=== PATIENT | female | born 1965 ===

== ENCOUNTER 2016-12-07 21:10 | Emergency (ER) | payer MEDICAID ==
[~2016-12-07] VITALS: Ht 144.8 cm; Wt 72.7 kg
[~2016-12-07 21:10] MED LIST: AMOX-366 PO; LEVO750T9 PO; LORA-303 PO; RISP1TAB90 PO
[2016-12-07 21:17] VITALS: BP 150/85; PULSE 96; RESP 20; O2SAT 97
--- NOTE | 2016-12-07 21:23 | ED.REPORT ---
HPI-Psychiatric Illness Date of Service Dec 07, 2016 ED Provider: Alan Gonzalez MD A 51 year old female with a history of schizophrenia, bipolar disorder, depression, anxiety and self-mutilation many years ago presents to the ED complaining of depression. The pt has been experiencing increased stress recently from her situation at home, resulting in anxiety and depression. The pt has been having suicidal thoughts involving drowning herself, but denies suicidal intent at this time. She is [facility] and states that she has stayed at [facility] before. The pt denies shortness of breath or any other physical concerns. Nursing Notes Stated Complaint: ANXIETY, DEPRESSION Chief Complaint: Psychiatric Complaint Nursing Notes Reviewed: Yes Allergies: Coded Allergies: codeine (Verified Allergy, Intermediate, Nausea,Vomiting, 12/07/16) acetaminophen (Verified Adverse Reaction, Intermediate, Nausea,Vomiting, ) Scheduled Amoxicillin/Clav K 875-125 mg (Augmentin 875-125 mg) 1 Each Tablet 1 TABLET PO BID Levofloxacin (Levaquin) 750 Mg Tablet 750 MG PO DAILY Risperidone (Risperdal) 1 Mg Tablet 1 MG PO DAILY Scheduled PRN Lorazepam-Expunged Drug, Do Not Renew! (Lorazepam-Expunged Drug, Do Not Renew!) 1 Mg Tab 1 MG PO HS PRN PRN General Time Seen by MD: 21:23 Chief Complaint Depressed Hx Obtained From: Patient Arrived By: Walk-in Symptom Duration: Since onset Recent Healthcare: No recent hospitalization Similar Sx Previous: Yes Risk-Psychiatric Illness Suicide Risk Stratification Suicide Risk Factors - Adult: No: Alcohol use, Substance abuse RF Statements: Risk factors reviewed Past Medical History Past Medical History Anxiety Depression Schizophrenia Heart murmur Self-mutilation many years ago Heart murmur Past Surgical History None reported Family History Noncontributory Smoking History Never Smoker Social History not reported Drug Use: Denies drug use Other Social History: Good social support, Local resident Ambulatory Status Independent Review of Systems Respiratory: Denies: Non-productive cough, Shortness of breath Cardiovascular: Denies: Chest pain GI: Denies: Abdominal pain, Vomiting Skin: Denies Rash Psychiatric: Reports: Depression, Suicidal ideation (earlier, not currently) Complete sys rev & neg: except as marked. Physical Exam Initial Vital Signs Vital Signs (First) Date Time Temp Pulse Resp B/P Pulse Ox O2 Delivery O2 Flow Rate FiO2 12/07/16 21:17 36.1 96 20 150/85 97 Room Air Initial VS: Reviewed General/Constitutional: Awake, Alert Appearance / Presentation: Positive: Obese Neurologic: Oriented X3, Speech NL, No motor deficits, No sensory deficits Psychiatric: Affect NL Abnormal Mood/Affect: Positive: Depressed Tearful Head / Eyes: Atraumatic, Normocephalic, PERRL, EOMI ENT: Atraumatic, Airway patent, Mucous membranes moist Respiratory / Chest: Atraumatic, Breath sounds NL, Breath sounds = bilat, No respiratory distress Cardiovascular: Heart rate NL, Regular rhythm, Heart sounds NL Abdomen: Atraumatic, Soft, Non-tender Skin: Atraumatic, Color NL, No rash, Warm, Dry Neck: Atraumatic, Supple, Full range of motion, No adenopathy Back: Atraumatic, Full range of motion Upper Extremity / MS: Atraumatic, Full range of motion Lower Extremity / Pelvis / MS: Atraumatic, Full range of motion Interpretation & Diagnostics Lab Results Interpretation Result Diagram: 12/07/16 2206 Test 12/07/16 22:00 12/07/16 22:06 White Blood Count 7.2th/mm3 (3.8-10.1) Red Blood Count 5.02mil/mm3 (3.90-5.20) Hemoglobin 14.5g/dL (12.0-15.6) Hematocrit 42.2% (35.0-46.0) Mean Corpuscular Volume 84.1fL (81-100) Mean Corpuscular Hemoglobin 28.9pg (27.0-35.0) Mean Corpuscular Hemoglobin Concent 34.4% (32.0-37.0) Red Cell Distribution Width 13.5% (12.3-15.4) Platelet Count 278bil/L (150-400) Neutrophils (%) (Auto) 64.0% (40-74) Lymphocytes (%) (Auto) 24.1% (14-46) Monocytes (%) (Auto) 10.0% (4-12) Eosinophils (%) (Auto) 1.7% (0-5) Basophils (%) (Auto) 0.1% (0-3) Re-Eval/Medical Decision Med Decision/Clinical Course 51-year-old disabled lady with bipolar illness and a remote history of cutting behavior as an adolescent, presents now with situational stresses and suicidal ideation. Her vague plan was to drown herself, but she has no intention of carrying through with that. However, she feels unable to remain in her current situation because of the ongoing stresses. She feels she is going to have a nervous breakdown. She [facility]. She has no ongoing medical issues beyond her background psychiatric issues. Denies diabetes, heart disease, hypertension, or thyroid disease. She does not drink, does not do drugs, and indeed her urine drug screen is negative and a breathalyzer zero. She is stable for outpatient treatment at a crisis center, and he is presented to [facility] for potential admission. Source of Hx: Old records Re-Evaluation/Progress : Time of Eval: 21:46 Patient Status: Condition improved Re-Evaluation/Progress Note: Pt rechecked, who is resting. She is informed of bed availability at [facility]. The pt understands and agrees with the plan for discharge to Crisis. Counseled Regarding: Diagnosis, Lab results, Need for follow-up, When/why to return to ED Discharge & Departure Impression: Primary Impression: Suicidal ideation Additional Impressions: Medical clearance for psychiatric admission Depression Acute situational disturbance Disposition: Home Discharge Condition All VS Reviewed: Yes Condition: Stable Referrals: Akshat Mims MD (PCP) Scribe Attestation Portions of this note were transcribed by Mike Guan. I, Dr. Gonzalez personally performed the history, physical exam and medical decision-making; I reviewed and confirmed the accuracy of the information in the transcribed note. copies to: Akshat Mims MD, Christopher W MD Dec 07, 2016 21:23 MIKE GUAN Dec 07, 2016 21:32
[2016-12-07 22:09] LABS: BASOPHILS % (AUTO) 0.1 % (0-3); EOSINOPHILS % (AUTO) 1.7 % (0-5); Mean Corpuscular Hemoglobin 28.9 pg (27.0-35.0); Mean Corpuscular Volume 84.1 fL (81-100); Platelet Count 278 bil/L (150-400)
[2016-12-07] MEDS ORDERED: RISP1TAB3 PO (23:33)
[2016-12-08 04:32] VITALS: BP 125/79; PULSE 79; RESP 16; O2SAT 97
[2016-12-08 04:53] VITALS: BP 125/79; PULSE 79; RESP 16; O2SAT 97
== END 2016-12-08 04:54 | disposition home or self-care (01) ==
LOC: SED 21:10
DX: R45.851 Suicidal ideations (principal); F43.0 Acute stress reaction; F41.8 Other specified anxiety disorders; F20.9 Schizophrenia, unspecified; Z04.6 Encounter for general psychiatric examination, requested by authority; Z88.5 Allergy status to narcotic agent; Z88.6 Allergy status to analgesic agent

== ENCOUNTER 2016-12-30 18:37 | Emergency (ER) | payer MEDICAID ==
[~2016-12-30] VITALS: Ht 144.8 cm; Wt 75.0 kg
[~2016-12-30 18:37] MED LIST changes: +RISP1TAB3 PO
[2016-12-30 19:08] VITALS: BP 158/88; PULSE 76; RESP 18; O2SAT 99
--- NOTE | 2016-12-30 21:17 | ED.REPORT ---
HPI-Dental/Mouth Prob Date of Service Dec 30, 2016 ED Provider: Jose L Awan MD The pt is a 51 y/o female w/ a hx of anxiety, schizophrenia, and depression, presenting to the ED complaining of left ear pain onset 4 days ago. The pt reports popping her ears, while plugging her nose, and she suspects she may have ruptured her L ear drum. The pt did not feel any fluid drip out. The pt also reports her L lower jaw hurting from an infected tooth. Nursing Notes Stated Complaint: DENTAL PAIN, LEFT EAR PAIN Chief Complaint: L ear pain Nursing Notes Reviewed: Yes Allergies: Coded Allergies: codeine (Verified Allergy, Intermediate, Nausea,Vomiting, 12/07/16) hydrocodone (Verified Allergy, Unknown, 12/30/16) ibuprofen (Verified Allergy, Unknown, 12/30/16) Scheduled Amoxicillin/Clav K 875-125 mg (Augmentin 875-125 mg) 1 Each Tablet 1 TABLET PO BID Levofloxacin (Levaquin) 750 Mg Tablet 750 MG PO DAILY Risperidone (Risperdal) 1 Mg Tablet 1 MG PO DAILY Risperidone (Risperidone) 1 Mg Tablet 1 MG PO HS Scheduled PRN Lorazepam-Expunged Drug, Do Not Renew! (Lorazepam-Expunged Drug, Do Not Renew!) 1 Mg Tab 1 MG PO HS PRN PRN General Time Seen by MD: 21:11 Chief Complaint Other (L ear pain ) Hx Obtained From: Patient Arrived By: Walk-in Onset Occurred: 4 days ago Symptom Duration: Since onset Recent Healthcare: No recent hospitalization, Recent doctor visit Similar Sx Previous: Yes Past Medical History Past Medical History Anxiety Depression Schizophrenia Heart murmur Self-mutilation many years ago Heart murmur Past Surgical History None reported Family History Noncontributory Smoking History Never Smoker Social History not reported Drug Use: Denies drug use Other Social History: Good social support, Local resident Ambulatory Status Independent Review of Systems Left lower jaw pain; Ears / Nose / Throat: Reports: Earache left Complete sys rev & neg: except as marked. Physical Exam Initial Vital Signs Vital Signs (First) Date Time Temp Pulse Resp B/P Pulse Ox O2 Delivery O2 Flow Rate FiO2 12/30/16 19:08 36.8 76 18 158/88 99 Room Air Initial VS: Reviewed General/Constitutional: Well-developed, Well-nourished Respiratory: Breath sounds normal, Clear to auscultation, No respiratory distress Cardiovascular: Regular rate & rhythm, Heart sounds normal, Intact distal pulses Extremities: Vascular intact, Neuro intact, No swelling, No tenderness Skin: Warm, Dry, No cyanosis Neurologic: Alert, Oriented, Nonfocal Psychiatric: Mood/affect normal, Behavior normal, Normal thought content ENT: Airway patent, Mucous membranes moist Cerumen impaction in L ear, once removed the tympanic membrane was found to be dull and retracted w/ erythema; Tooth number 18 is decayed and abscessed w/ swelling of the adjacent gum; Neck: Supple, Non-tender No adenopathy; Head / Eyes: Normocephalic No mastoid tenderness; Procedures Lidocaine was instilled and cerumen was removed from L ear and tympanic membrane was found to be dull and retracted w/ erythema Re-Eval/Medical Decision Med Decision/Clinical Course Uncomplicated dental abscess associated with severe dental caries. She also has a left cerumen impaction which was removed revealing a retracted eardrum without infection. Source of Hx: Old records Re-Evaluation/Progress : Time of Eval: 22:41 Re-Evaluation/Progress Note: Pt rechecked. Applied numbing medication to L ear. Informed pt of plan for treatment. Pt understands and agrees with plan for treatment. F/U instructions and RTER warnings given. All questions addressed. Counseled Regarding: Diagnosis, Need for follow-up, When/why to return to ED Discharge & Departure Primary Impression: Dental abscess Additional Impressions: Cerumen impaction Laterality: left Qualified Code: H61.22 - Impacted cerumen, left ear Eustachian tube dysfunction Laterality: left Qualified Code: H69.82 - Other specified disorders of Eustachian tube, left ear Disposition: Home Discharge Condition All VS Reviewed: Yes Condition: Stable Patient Instructions: Dental Abscess (ED), Eustachian Tube Dysfunction (GEN) Additional Instructions: Oxymetazoline (Afrin) nasal spray 1 spray each nostril 3 times a day for 3 days. Amoxicillin 500 mg by mouth 3 times a day, #30 dispensed. This antibiotic is good both for the dental infection and for the possible left ear infection. Referrals: Akshat Mims MD (PCP) Scribe Attestation Portions of this note were transcribed by Juaquin Laird. IDr. Awan personally performed the history, physical exam and medical decision-making; I reviewed and confirmed the accuracy of the information in the transcribed note. copies to: Akshat Mims MD, Jose L Ng MD Dec 30, 2016 21:17 Juaquin Laird Dec 30, 2016 21:26
[2016-12-30 21:45] VITALS: BP 116/66; PULSE 72; RESP 18; O2SAT 96
[2016-12-30] MEDS ORDERED: Lidocaine 4% 50 mL Topical Solution TOPICAL ONE (21:55)
[2016-12-30 23:14] VITALS: BP 116/66; PULSE 72; RESP 18; O2SAT 96
[2016-12-31] MEDS ORDERED: _Amoxicillin 500 mg Capsule PO SCH (08:30)
== END 2016-12-30 23:00 | disposition home or self-care (01) ==
LOC: SED 18:37
DX: K04.7 Periapical abscess without sinus (principal); H61.22 Impacted cerumen, left ear; H69.82 Other specified disorders of Eustachian tube, left ear; F41.9 Anxiety disorder, unspecified; Z91.5 Personal history of self-harm; Z88.5 Allergy status to narcotic agent; Z88.6 Allergy status to analgesic agent